=== PATIENT | male | born 1935 | race Caucasian/White ===

== ENCOUNTER 2021-05-27 06:38 | Day surgery (SDC) | payer MEDICARE, OTHER ==
[~2021-05-27] VITALS: Ht 172.7 cm; Wt 92.9 kg
[2021-05-27] VITALS (9 sets, daily range): BP systolic 99–125; BP diastolic 51–77
[2021-05-27] MEDS ORDERED: VANCOMYCIN 1,500MG inj. 1,500 MG in normal saline 500ml IV soln 500 ML IV ONE (07:00)
[2021-05-27] MEDS ORDERED: cefazolin/dext.iso 2gm/100ml 100 ML IV ONE (07:00)
[2021-05-27 07:47] LABS: BASOPHILS # (AUTO) 0.1 X10'3 (0-0.2); BASOPHILS % (AUTO) 0.7 % (0-1); EOSINOPHILS # (AUTO) 0.2 X10'3 (0-0.9); HEMATOCRIT 41.1 % (42.0-52.0); HEMOGLOBIN 14.1 g/dl (14.0-17.9); LYMPHOCYTES # (AUTO) 1.2 X10'3 (1.1-4.8); LYMPHOCYTES % (AUTO) 15.3 % (21-51); MEAN CORPUSCULAR HEMOGLOBIN 33.1 PG (27.0-31.0); MEAN CORPUSCULAR HGB CONC 34.2 g/dL (33.0-36.5); MEAN CORPUSCULAR VOLUME 96.8 FL (78-98); MEAN PLATELET VOLUME 8.2 FL (7.4-10.4); MONOCYTES % (AUTO) 12.6 % (2-12); NEUTROPHILS # (AUTO) 5.6 X10'3 (1.8-7.7); NEUTROPHILS % (AUTO) 69.4 % (42-75); PLATELET COUNT 266 X10'3 (140-440); RED BLOOD COUNT 4.25 X10'6 (4.70-6.10)
[2021-05-27] MEDS ORDERED: CYAN1TAB41 PO (07:54)
[2021-05-27] MEDS ORDERED: UBID100C16 PO (07:54)
[2021-05-27] MEDS ORDERED: CARV12.549 PO (07:54)
[2021-05-27] MEDS ORDERED: CLOP75TA34 PO (07:54)
[2021-05-27] MEDS ORDERED: LOSA25TA96 PO (07:54)
[2021-05-27] MEDS ORDERED: APIX5TAB5 PO (07:54)
[2021-05-27] MEDS ORDERED: ISOS30TA84 PO (07:54)
[2021-05-27] MEDS ORDERED: MV-M1TAB19 PO (07:54)
[2021-05-27] MEDS ORDERED: SPIR25TA5 PO (07:54)
[2021-05-27] MEDS ORDERED: FLO0.4C PO (07:54)
[2021-05-27] MEDS ORDERED: TORS100T15 PO (07:54)
[2021-05-27 07:56] LABS: ALBUMIN 3.2 G/DL (3.4-5.0); ANION GAP 9 (8-16); BLOOD UREA NITROGEN 11 MG/DL (7-18); BUN/CREATININE RATIO 9.7 (5.4-32.0); CALCIUM 8.6 MG/DL (8.5-10.1); CHLORIDE 97 MMOL/L (99-107); CREATININE 1.13 MG/DL (0.60-1.10); GLUCOSE 114 MG/DL (70-104); MAGNESIUM 1.4 MG/DL (1.5-2.4); SODIUM 137 MMOL/L (135-145); TOTAL CARBON DIOXIDE 30.8 MMOL/L (24-32); eGFR 62 ML/MIN
[2021-05-27 08:00] LABS: POTASSIUM 2.7 MMOL/L (3.5-5.1)
[2021-05-27] MEDS ORDERED: potassium Cl 40MEQ/1/2NS 520ml 520 ML IV PRN (08:20)
[2021-05-27] MEDS ORDERED: vancomycin 1,000mg inj ONE (08:35)
[2021-05-27] MEDS ORDERED: LIDOcaine 1% W/epiNEPHrine 1:100,000 20ml vial ONE (08:35)
[2021-05-27] MEDS ORDERED: fentaNYL/PF 50MCG/1 ML 2ML syringe ONE (08:35)
[2021-05-27] MEDS ORDERED: midazolam 1 mg/ML 2ml injection ONE ×7 (08:35→10:22)
[2021-05-27] MEDS ORDERED: iohexol 350 MG/ML 50ML vial IV ONE ×2 (08:43→10:09)
[2021-05-27] MEDS ORDERED: potassium Cl 10 mEq/100mL bag IV ONE ×2 (08:45)
[2021-05-27] MEDS ORDERED: POTASSIUM CL IV ONE ×4 (08:50)
[2021-05-27] MEDS ORDERED: potassium CL 10mEq/100ml bag 100 ML IV ONE ×2 (08:50)
[2021-05-27] MEDS ORDERED: NORMAL SALINE IV ONE ×4 (08:50)
[2021-05-27] MEDS ORDERED: LIDOCAINE 1%/EPI 1:100,000 inj. 10 ML multi-dose vial ONE (09:44)
[2021-05-27] MEDS ORDERED: proCHLORperazine 10 MG/2 ml inj ONE (10:18)
[2021-05-27] MEDS ORDERED: HYDROcodone/acetaminophen 10/325mg tab PO PRN (11:25)
[2021-05-27] MEDS ORDERED: HYDROcodone/acetaminophen 5mg/325mg tablet PO PRN (11:25)
[2021-05-27] MEDS ORDERED: normal saline 1000ml 600 ML IV ONE (11:25)
== END 2021-05-27 14:10 | disposition home or self-care (01) ==
LOC: SSTAY O 06:38
PROVIDERS: ATTEND Internal Medicine Cardiovascular Disease
DX: Z45.02 Encounter for adjustment and management of automatic implantable cardiac defibrillator (principal); I42.0 Dilated cardiomyopathy; I48.20 Chronic atrial fibrillation, unspecified; I44.7 Left bundle-branch block, unspecified; I25.10 Atherosclerotic heart disease of native coronary artery without angina pectoris; I27.20 Pulmonary hypertension, unspecified; I48.0 Paroxysmal atrial fibrillation; I50.9 Heart failure, unspecified; I25.5 Ischemic cardiomyopathy; G47.30 Sleep apnea, unspecified; Z79.899 Other long term (current) drug therapy; Z79.01 Long term (current) use of anticoagulants; Z95.1 Presence of aortocoronary bypass graft
CPT/HCPCS: 33225; 33264; 36415; 71045; 80048; 83735; 85025; 85610; 93005; 99152; 99153; C1769; C1882; C1887; C1894; C1900; J0780; J2250; J3010; J3370; J3480; Q9967; A4565; A4620; A6258

== ENCOUNTER 2022-02-17 07:37 | Emergency (ER) | payer MEDICARE, OTHER ==
[~2022-02-17] VITALS: Ht 175.3 cm; Wt 86.2 kg
[~2022-02-17 07:37] MED LIST: APIX5TAB5 PO; CARV12.549 PO; CLOP75TA34 PO; CYAN1TAB41 PO; FLO0.4C PO; ISOS30TA84 PO; LOSA25TA96 PO; MV-M1TAB19 PO; SPIR25TA5 PO; TORS100T15 PO; UBID100C16 PO
[2022-02-17 07:55] VITALS: BP 109/66
--- NOTE | 2022-02-17 08:26 | NUR ---
TRAUMA ALERT CALLED OFF BY MD GANDHI
--- NOTE | 2022-02-17 09:35 | NUR ---
PT REQUESTING PAIN MEDICATION, NOTIFIED
[2022-02-17] MEDS ORDERED: HYDR-3965 PO (09:45)
== END 2022-02-17 10:19 | disposition home or self-care (01) ==
LOC: ER 07:37
DX: S92.352A Displaced fracture of fifth metatarsal bone, left foot, initial encounter for closed fracture (principal); S80.12XA Contusion of left lower leg, initial encounter; Z79.899 Other long term (current) drug therapy; Z79.01 Long term (current) use of anticoagulants; W19.XXXA Unspecified fall, initial encounter; Y93.89 Activity, other specified; Y92.89 Other specified places as the place of occurrence of the external cause; Y99.8 Other external cause status
CPT/HCPCS: 73564; 73630; 99284

== ENCOUNTER 2022-07-18 08:03 | Day surgery (SDC) | payer MEDICARE, OTHER ==
[~2022-07-18] VITALS: Ht 172.7 cm; Wt 86.8 kg
[~2022-07-18 08:03] MED LIST changes: -CARV12.549 PO; +CARV6.2553 PO; -CYAN1TAB41 PO; +DOXY-243 PO; -FLO0.4C PO; -ISOS30TA84 PO; +LAN0.125T PO; -MV-M1TAB19 PO; +POTA-208 PO; -SPIR25TA5 PO; -UBID100C16 PO
[2022-07-18] MEDS ORDERED: FENTANYL CITRATE/PF 50 MCG/1 ML VIAL ONE (08:05)
[2022-07-18] MEDS ORDERED: MIDAZolam 1 MG/ML 5ML VIAL ONE (08:06)
[2022-07-18] MEDS ORDERED: LIDOcaine Viscous 15ml cup ONE (08:06)
[2022-07-18 08:16] VITALS: BP 134/73
[2022-07-18] MEDS ORDERED: TERB250T89 PO (08:51)
[2022-07-18] MEDS ORDERED: KETO120S5 TOP (08:51)
[2022-07-18] MEDS ORDERED: diphenhydrAMINE 50 mg/ml inj ONE (08:54)
[2022-07-18 09:16] VITALS: BP 147/73
[2022-07-18 09:24] VITALS: BP 132/78
[2022-07-18 09:34] VITALS: BP 141/87
[2022-07-18 09:44] VITALS: BP 142/82
== END 2022-07-18 10:00 | disposition home or self-care (01) ==
LOC: GI LAB 08:03
PROVIDERS: ATTEND Internal Medicine Gastroenterology
DX: K29.70 Gastritis, unspecified, without bleeding (principal); R13.10 Dysphagia, unspecified
CPT/HCPCS: 43239; J2250; J3010; J7030; Z7512; 99152; A4620; J1200

== ENCOUNTER 2022-07-22 11:26 | Emergency (ER) | payer MEDICARE, OTHER ==
[~2022-07-22] VITALS: Ht 172.7 cm; Wt 222.7 kg
[~2022-07-22 11:26] MED LIST changes: -DOXY-243 PO; +KETO120S5 TOP; -POTA-208 PO; +TERB250T89 PO
[2022-07-22 12:54] LABS: BASOPHILS # (AUTO) 0.1 X10'3 (0-0.2); BASOPHILS % (AUTO) 0.8 % (0-1); EOSINOPHILS # (AUTO) 0.2 X10'3 (0-0.9); EOSINOPHILS % (AUTO) 1.4 % (0-6); HEMATOCRIT 42.5 % (42.0-52.0); HEMOGLOBIN 13.9 g/dl (14.0-17.9); LYMPHOCYTES # (AUTO) 1.3 X10'3 (1.1-4.8); LYMPHOCYTES % (AUTO) 8.2 % (21-51); MEAN CORPUSCULAR HEMOGLOBIN 28.8 PG (27.0-31.0); MEAN CORPUSCULAR HGB CONC 32.8 g/dL (33.0-36.5); MEAN PLATELET VOLUME 7.5 FL (7.4-10.4); MONOCYTES # (AUTO) 1.7 X10'3 (0-0.9); MONOCYTES % (AUTO) 10.6 % (2-12); NEUTROPHILS # (AUTO) 12.3 X10'3 (1.8-7.7); PLATELET COUNT 457 X10'3 (140-440); RED BLOOD COUNT 4.83 X10'6 (4.70-6.10); RED CELL DISTRIBUTION WIDTH 14.5 % (11.5-14.5); WHITE BLOOD COUNT 15.6 X10'3 (4.5-11.0)
[2022-07-22 13:00] LABS: ALANINE AMINOTRANSFERASE 12 U/L (12-78); ALBUMIN 3.3 G/DL (3.4-5.0); ALBUMIN/GLOBULIN RATIO 0.7 (1.1-1.5); ALKALINE PHOSPHATASE 92 IU/L (46-116); ANION GAP 11 (8-16); ASPARTATE AMINO TRANSFERASE 17 U/L (10-37); BILIRUBIN,TOTAL 0.4 MG/DL (0.1-1.0); BLOOD UREA NITROGEN 34 MG/DL (7-18); BUN/CREATININE RATIO 24.6 (5.4-32.0); CALCIUM 9.5 MG/DL (8.5-10.1); CHLORIDE 98 MMOL/L (99-107); CREATININE 1.38 MG/DL (0.60-1.10); GLUCOSE 126 MG/DL (70-104); POTASSIUM 4.3 MMOL/L (3.5-5.1); SODIUM 135 MMOL/L (135-145); TOTAL CARBON DIOXIDE 26.2 MMOL/L (24-32); TOTAL PROTEIN 7.9 G/DL (6.4-8.2); eGFR 49 ML/MIN
[2022-07-22 14:17] LABS: CLARITY,URINE CLEAR (Clear); COLOR,URINE YELLOW (Yellow); GLUCOSE, URINE NEGATIVE (Neg); KETONES,URINE NEGATIVE (Neg); LEUKOCYTE ESTERASE ,URINE NEGATIVE (Neg); NITRITES, URINE NEGATIVE (Neg); OCCULT BLOOD,URINE NEGATIVE (Neg); PROTEIN,URINE NEGATIVE (Neg); UROBILINOGEN,URINE 0.2 E.U/dL (0.2-1.0)
[2022-07-22 14:18] LABS: UA COLLECTION TYPE VOIDED
[2022-07-22] MEDS ORDERED: morphine 2 MG/ML inj. syringe IV ONE (14:45)
[2022-07-22] MEDS ORDERED: ondansetron/PF 4mg/2ml inj IV ONE (14:45)
--- NOTE | 2022-07-22 14:52 | NUR ---
pt left for CT abd
--- NOTE | 2022-07-22 15:17 | NUR ---
Pt came back from CT
[2022-07-22] MEDS ORDERED: FENT-90 TOP (17:42)
[2022-07-22 18:36] VITALS: BP 140/71
== END 2022-07-22 18:42 | disposition home or self-care (01) ==
LOC: ER 11:27
DX: M54.50 Low back pain, unspecified (principal); Z88.8 Allergy status to other drugs, medicaments and biological substances; Z88.5 Allergy status to narcotic agent
CPT/HCPCS: 36415; 71045; 74176; 80053; 81003; 83880; 84484; 85025; 93005; 96374; 96375; 99285; J2270; J2405; 88305

== ENCOUNTER 2023-12-08 10:34 | Emergency (ER) | payer MEDICARE, OTHER ==
[~2023-12-08] VITALS: Ht 172.7 cm; Wt 74.5 kg
[~2023-12-08 10:34] MED LIST changes: +CARV12.549 PO; -CARV6.2553 PO; +CHLO25TA11 PO; +CYCL-394 PO; -LOSA25TA96 PO; +PRED10TA PO; +SACU1TAB7 PO
[2023-12-08 10:47] VITALS: TEMP 97.8
[2023-12-08 11:14] VITALS: PULSE 60; RESP 18; O2SAT 97
[2023-12-08] MEDS: ipratropium/albuterol 3ml nebule NEB ONE (11:14)
[2023-12-08 11:24] VITALS: PULSE 60; RESP 16; O2SAT 97
[2023-12-08] MEDS ORDERED: ALBU8HFA INH (12:02)
[2023-12-08] MEDS ORDERED: AZIT250T83 PO (12:02)
[2023-12-08 12:16] VITALS: BP 136/62; PULSE 62; RESP 14; O2SAT 98
== END 2023-12-08 12:19 | disposition home or self-care (01) ==
LOC: ER 10:35
DX: J06.9 Acute upper respiratory infection, unspecified (principal); I11.0 Hypertensive heart disease with heart failure; I50.9 Heart failure, unspecified; J44.9 Chronic obstructive pulmonary disease, unspecified; Z88.8 Allergy status to other drugs, medicaments and biological substances; Z79.899 Other long term (current) drug therapy
CPT/HCPCS: 71045; 94640; 94760; 99283

== ENCOUNTER 2024-04-24 09:15 | Inpatient (IN) | payer MEDICARE, OTHER ==
[~2024-04-24] VITALS: Ht 172.7 cm; Wt 84.1 kg
[~2024-04-24 09:15] MED LIST changes: +FURO40TA4 PO; -PRED10TA PO; -TORS100T15 PO
[2024-04-24 09:34] LABS: BASOPHILS # (AUTO) 0.1 X10'3 (0-0.2); BASOPHILS % (AUTO) 0.9 % (0-1); EOSINOPHILS # (AUTO) 0.4 X10'3 (0-0.9); EOSINOPHILS % (AUTO) 4.5 % (0-6); LYMPHOCYTES # (AUTO) 1.4 X10'3 (1.1-4.8); LYMPHOCYTES % (AUTO) 15.9 % (21-51); MEAN CORPUSCULAR HEMOGLOBIN 28.4 PG (27.0-31.0); MEAN CORPUSCULAR HGB CONC 33.4 g/dL (33.0-36.5); MEAN CORPUSCULAR VOLUME 85.1 FL (78-98); MEAN PLATELET VOLUME 8.1 FL (7.4-10.4); MONOCYTES # (AUTO) 1.1 X10'3 (0-0.9); MONOCYTES % (AUTO) 12.3 % (2-12); NEUTROPHILS # (AUTO) 5.8 X10'3 (1.8-7.7); NEUTROPHILS % (AUTO) 66.4 % (42-75); PLATELET COUNT 254 X10'3 (140-440); RED BLOOD COUNT 4.59 X10'6 (4.70-6.10); RED CELL DISTRIBUTION WIDTH 15.2 % (11.5-14.5); WHITE BLOOD COUNT 8.8 X10'3 (4.5-11.0)
[2024-04-24 09:49] LABS: ALANINE AMINOTRANSFERASE 10 U/L (12-78); ALBUMIN 3.8 G/DL (3.4-5.0); ALBUMIN/GLOBULIN RATIO 1.2 (1.1-1.5); ALKALINE PHOSPHATASE 58 IU/L (46-116); ANION GAP 7 (8-16); ASPARTATE AMINO TRANSFERASE 25 U/L (10-37); BILIRUBIN,TOTAL 0.9 MG/DL (0.1-1.0); BLOOD UREA NITROGEN 20 MG/DL (7-18); BUN/CREATININE RATIO 15.2 (10.0-20.0); CALCIUM 9.2 MG/DL (8.5-10.1); CHLORIDE 93 MMOL/L (99-107); CREATININE 1.32 MG/DL (0.60-1.10); GLUCOSE 106 MG/DL (70-104); POTASSIUM 3.8 MMOL/L (3.5-5.1); SODIUM 132 MMOL/L (135-145); TOTAL CARBON DIOXIDE 31.6 MMOL/L (24-32); eCRCL 38 ML/MIN; eGFR 51 ML/MIN
--- NOTE | 2024-04-24 09:55 | NUR ---
RESIDENT AT BEDSIDE
[2024-04-24 09:56] LABS: PRO BRAIN NATRIURETIC PEPTIDE 11031 PG/ML (0-450)
--- NOTE | 2024-04-24 10:28 | NUR ---
REVIEWED AND AGREE WITH ASSESSMENT FINDINGS OF ERICK GILMAN.
[2024-04-24 11:38] LABS: D-DIMER 0.82 MG/L FEU (0-0.50)
[2024-04-24] MEDS: furosemide 10 MG/1 ML 10ml inj IV ONE (12:49)
--- NOTE | 2024-04-24 12:50 | NUR ---
MD QUARLES AT BEDSIDE. RN ASKED MD QUARLES IF HE WANTED TO REPLACE K 3.8 SINCE PT WILL 60MG MORE OF LASIX TO PREVENT LOW K. MD QUARLES GAVE VERBAL ORDER TO GIVE 20MEQ K . VASCULAR US AT BEDSIDE
[2024-04-24 12:57] LABS: DIGOXIN 1.4 NG/ML (0.9-1.9)
[2024-04-24] MEDS ORDERED: HYDROcodone/acetaminophen 5mg/325mg tablet PO PRN (13:20)
[2024-04-24] MEDS ORDERED: acetaminophen 325mg tablet PO PRN (13:20)
[2024-04-24] MEDS ORDERED: bisacodyl 10mg suppository rectal RC PRN (13:20)
[2024-04-24] MEDS ORDERED: magnesium sulf-water 2g/50mL 50 ML IV PRN (13:20)
[2024-04-24] MEDS ORDERED: potassium Cl 20 mEq SR tablet PO PRN ×2 (13:20)
[2024-04-24] MEDS ORDERED: potassium Cl 40MEQ/1/2NS 520ml 520 ML IV PRN (13:20)
[2024-04-24] MEDS ORDERED: magnesium sulf-water 4G/100mL 100 ML IV PRN (13:20)
[2024-04-24] MEDS ORDERED: mag hydrox/Alum hydrox/simeth 30ml oral suspension PO PRN (13:20)
[2024-04-24] MEDS: PERFLUTREN PROTEIN-A MICROSPHR (Optison) 0.22 MG/ML 3ML VIAL IV ONE (13:20)
--- NOTE | 2024-04-24 15:46 | NUR ---
Patient states his will bring in medication list this afternoon or tomorrow.
[2024-04-24 17:28] VITALS: BP 137/66; PULSE 61; RESP 24; TEMP 97.9; O2SAT 100
[2024-04-24 18:00] VITALS: BP 149/75; PULSE 65; PULSE 68; RESP 18; RESP 19; TEMP 96.8; O2SAT 100
[2024-04-24 20:00] VITALS: RESP 20; O2SAT 98
[2024-04-24] MEDS: K and/or MAG REPLACEMENT MC SCH (20:00)
[2024-04-24] MEDS: docusate sod 100mg capsule PO SCH (20:00)
[2024-04-24] MEDS: furosemide 40mg/4ml inj IV SCH (20:13)
[2024-04-24] MEDS: heparin, porcine 5000 units/ml vial SQ SCH (20:14)
[2024-04-24 22:00] VITALS: BP 139/70; PULSE 61; RESP 20; TEMP 98; O2SAT 99
[2024-04-25] VITALS (7 sets, daily range): BP systolic 111–150; BP diastolic 54–82; PULSE 51–108; RESP 14–21; TEMP 97.2–98.2; O2SAT 92–100
[2024-04-25] MEDS: Melatonin 3mg tablet PO ONE (01:29)
[2024-04-25] MEDS: HYDROcodone/acetaminophen 10/325mg tab PO PRN (05:25)
--- NOTE | 2024-04-25 05:27 | NUR ---
CHEST PAIN: 1) C/O of chest pain, not radiating, no nausea or vomiting. 2) EKG completed, awaiting MD REVIEW. 3) [place] administered and awaiting effect 4) Paged RT - patient wheezing
--- NOTE | 2024-04-25 05:34 | NUR ---
Paged RT: MESSAGE ACCEPTED! The message has been submitted for processing. Back to message FORM
--- NOTE | 2024-04-25 05:46 | NUR ---
RT reviewed patient and the wheeziness is non respiratory related more fluid overload related.
--- NOTE | 2024-04-25 05:47 | NUR ---
1) Informed MD, on the way to review patient. 2) Currently on 4 liters oxygen - sats in the high 90s to 100%, 3) Patient using abdominal muscles to breath - moderate respiratory distress. 4) Will continue monitoring, treating, evaluating, and treating accordingly.
[2024-04-25 06:12] LABS: BASOPHILS # (AUTO) 0.1 X10'3 (0-0.2); EOSINOPHILS # (AUTO) 0.4 X10'3 (0-0.9); EOSINOPHILS % (AUTO) 3.4 % (0-6); HEMATOCRIT 40.7 % (42.0-52.0); HEMOGLOBIN 13.4 g/dl (14.0-17.9); LYMPHOCYTES # (AUTO) 1.3 X10'3 (1.1-4.8); LYMPHOCYTES % (AUTO) 12.5 % (21-51); MEAN CORPUSCULAR HEMOGLOBIN 28.5 PG (27.0-31.0); MEAN CORPUSCULAR VOLUME 86.3 FL (78-98); MEAN PLATELET VOLUME 8.9 FL (7.4-10.4); MONOCYTES # (AUTO) 1.2 X10'3 (0-0.9); MONOCYTES % (AUTO) 11.2 % (2-12); NEUTROPHILS # (AUTO) 7.6 X10'3 (1.8-7.7); NEUTROPHILS % (AUTO) 71.9 % (42-75); PLATELET COUNT 284 X10'3 (140-440); RED BLOOD COUNT 4.71 X10'6 (4.70-6.10); RED CELL DISTRIBUTION WIDTH 14.9 % (11.5-14.5); WHITE BLOOD COUNT 10.6 X10'3 (4.5-11.0)
[2024-04-25] MEDS: nitroGLYCERIN 0.4mg SUBLingual tab SL PRN (06:13)
[2024-04-25] MEDS: bumetanide 0.25mg/ml 4ml vial IV ONE ×2 (06:20→09:28)
[2024-04-25 06:29] LABS: ALANINE AMINOTRANSFERASE 7 U/L (12-78); ALBUMIN 3.7 G/DL (3.4-5.0); ALBUMIN/GLOBULIN RATIO 1.2 (1.1-1.5); ALKALINE PHOSPHATASE 56 IU/L (46-116); ANION GAP 10 (8-16); ASPARTATE AMINO TRANSFERASE 12 U/L (10-37); BLOOD UREA NITROGEN 25 MG/DL (7-18); BUN/CREATININE RATIO 21.2 (10.0-20.0); CALCIUM 9.3 MG/DL (8.5-10.1); CHLORIDE 94 MMOL/L (99-107); CREATININE 1.18 MG/DL (0.60-1.10); GLUCOSE 104 MG/DL (70-104); POTASSIUM 3.8 MMOL/L (3.5-5.1); SODIUM 133 MMOL/L (135-145); TOTAL CARBON DIOXIDE 29.2 MMOL/L (24-32); TOTAL PROTEIN 6.8 G/DL (6.4-8.2); eCRCL 43 ML/MIN; eGFR 58 ML/MIN
--- NOTE | 2024-04-25 07:08 | NUR ---
Problems reprioritized. Patient report given, questions answered & plan of care reviewed with ERICK Alarcon
[2024-04-25] MEDS: metolazone 2.5mg tablet PO ONE (09:27)
[2024-04-25] MEDS: carvedilol 6.25mg tablet PO SCH (20:00)
[2024-04-25] MEDS: sacubitril/valsartan 49mg-51mg tablet PO SCH (20:00)
--- NOTE | 2024-04-25 20:31 | NUR ---
NIGHT MEDICATION: 1) Omitted bp med because bp and patient due Furosemide as well. 2) Will review patient's bp later and re-administer anti hypertensive if need be.
[2024-04-25] MEDS: apixaban 5mg tablet PO SCH (20:36)
[2024-04-25] MEDS: ondansetron/PF 4mg/2ml inj IV PRN (20:41)
[2024-04-25] MEDS: temazepam 15mg capsule PO ONE (23:18)
--- NOTE | 2024-04-25 23:19 | NUR ---
BP meds administered because bp is 127/54.
--- NOTE | 2024-04-25 23:27 | NUR ---
Carvedilol administered as prescribed, Entresto unavailable, sent a message to pharmacist.
[2024-04-26 02:00] VITALS: BP 110/58; PULSE 60; RESP 17; TEMP 97.3; O2SAT 99
[2024-04-26 06:00] VITALS: BP 133/59; PULSE 62; RESP 16; TEMP 97.3; O2SAT 100
[2024-04-26 06:09] LABS: BASOPHILS # (AUTO) 0.1 X10'3 (0-0.2); BASOPHILS % (AUTO) 1.3 % (0-1); EOSINOPHILS # (AUTO) 0.3 X10'3 (0-0.9); EOSINOPHILS % (AUTO) 3.5 % (0-6); HEMATOCRIT 37.2 % (42.0-52.0); HEMOGLOBIN 12.2 g/dl (14.0-17.9); LYMPHOCYTES # (AUTO) 1.1 X10'3 (1.1-4.8); LYMPHOCYTES % (AUTO) 13.2 % (21-51); MEAN CORPUSCULAR HEMOGLOBIN 28.5 PG (27.0-31.0); MEAN CORPUSCULAR HGB CONC 32.8 g/dL (33.0-36.5); MEAN PLATELET VOLUME 8.6 FL (7.4-10.4); MONOCYTES # (AUTO) 1.3 X10'3 (0-0.9); MONOCYTES % (AUTO) 15.9 % (2-12); NEUTROPHILS # (AUTO) 5.6 X10'3 (1.8-7.7); NEUTROPHILS % (AUTO) 66.1 % (42-75); PLATELET COUNT 228 X10'3 (140-440); RED BLOOD COUNT 4.28 X10'6 (4.70-6.10); RED CELL DISTRIBUTION WIDTH 14.9 % (11.5-14.5); WHITE BLOOD COUNT 8.4 X10'3 (4.5-11.0)
[2024-04-26 06:25] LABS: ANION GAP 6 (8-16); BLOOD UREA NITROGEN 28 MG/DL (7-18); BUN/CREATININE RATIO 20.3 (10.0-20.0); CALCIUM 9.2 MG/DL (8.5-10.1); CHLORIDE 94 MMOL/L (99-107); CREATININE 1.38 MG/DL (0.60-1.10); GLUCOSE 89 MG/DL (70-104); MAGNESIUM 1.8 MG/DL (1.5-2.4); POTASSIUM 3.7 MMOL/L (3.5-5.1); SODIUM 136 MMOL/L (135-145); TOTAL CARBON DIOXIDE 35.8 MMOL/L (24-32); eCRCL 36 ML/MIN; eGFR 49 ML/MIN
--- NOTE | 2024-04-26 06:35 | NUR ---
Problems reprioritized. Patient report given, questions answered & plan of care reviewed with Katty.
[2024-04-26 07:04] LABS: ALANINE AMINOTRANSFERASE 10 U/L (12-78); ALBUMIN 3.3 G/DL (3.4-5.0); ALBUMIN/GLOBULIN RATIO 1.1 (1.1-1.5); ALKALINE PHOSPHATASE 47 IU/L (46-116); ASPARTATE AMINO TRANSFERASE 16 U/L (10-37); BILIRUBIN,TOTAL 0.9 MG/DL (0.1-1.0); TOTAL PROTEIN 6.4 G/DL (6.4-8.2)
[2024-04-26] MEDS: digoxin 125mcg (0.125mg) tablet PO SCH (09:13)
[2024-04-26] MEDS: acetaminophen 325mg tablet PO PRN (16:19)
[2024-04-26 18:00] VITALS: BP 107/47; PULSE 60; RESP 17; TEMP 97.8; O2SAT 97
[2024-04-26 19:20] VITALS: BP 91/41
[2024-04-26 22:00] VITALS: BP 109/61; PULSE 63; RESP 21; TEMP 97; O2SAT 99
[2024-04-27] VITALS (7 sets, daily range): BP systolic 112–134; BP diastolic 47–55; PULSE 60–84; RESP 12–23; TEMP 97.2–99.2; O2SAT 92–99
[2024-04-27 07:09] LABS: BASOPHILS # (AUTO) 0.1 X10'3 (0-0.2); BASOPHILS % (AUTO) 0.8 % (0-1); EOSINOPHILS # (AUTO) 0.1 X10'3 (0-0.9); EOSINOPHILS % (AUTO) 0.9 % (0-6); HEMATOCRIT 36.1 % (42.0-52.0); HEMOGLOBIN 11.8 g/dl (14.0-17.9); LYMPHOCYTES # (AUTO) 1.2 X10'3 (1.1-4.8); LYMPHOCYTES % (AUTO) 8.8 % (21-51); MEAN CORPUSCULAR HEMOGLOBIN 28.3 PG (27.0-31.0); MEAN CORPUSCULAR HGB CONC 32.7 g/dL (33.0-36.5); MEAN CORPUSCULAR VOLUME 86.7 FL (78-98); MEAN PLATELET VOLUME 9.2 FL (7.4-10.4); MONOCYTES # (AUTO) 2.5 X10'3 (0-0.9); MONOCYTES % (AUTO) 18.3 % (2-12); NEUTROPHILS # (AUTO) 9.9 X10'3 (1.8-7.7); NEUTROPHILS % (AUTO) 71.2 % (42-75); PLATELET COUNT 228 X10'3 (140-440); RED BLOOD COUNT 4.17 X10'6 (4.70-6.10); WHITE BLOOD COUNT 13.9 X10'3 (4.5-11.0)
[2024-04-27 07:26] LABS: ALANINE AMINOTRANSFERASE 9 U/L (12-78); ALBUMIN/GLOBULIN RATIO 1.1 (1.1-1.5); ALKALINE PHOSPHATASE 40 IU/L (46-116); ANION GAP 4 (8-16); ASPARTATE AMINO TRANSFERASE 13 U/L (10-37); BLOOD UREA NITROGEN 38 MG/DL (7-18); BUN/CREATININE RATIO 24.4 (10.0-20.0); CALCIUM 8.9 MG/DL (8.5-10.1); CHLORIDE 94 MMOL/L (99-107); CREATININE 1.56 MG/DL (0.60-1.10); GLUCOSE 92 MG/DL (70-104); MAGNESIUM 1.7 MG/DL (1.5-2.4); POTASSIUM 3.7 MMOL/L (3.5-5.1); SODIUM 135 MMOL/L (135-145); TOTAL PROTEIN 5.8 G/DL (6.4-8.2); eCRCL 32 ML/MIN; eGFR 42 ML/MIN
[2024-04-27 07:55] LABS: TOTAL CELLS COUNTED 100
[2024-04-27 07:56] LABS: PLATELET ESTIMATE NORMAL
--- NOTE | 2024-04-27 08:29 | NUR ---
Patient in room U 3018. I have received report from Rolan and had the opportunity to ask questions and assume patient care. Addendum: 04/27/24 at 0831 by ERICK Mao RN Amended: Links added.
[2024-04-27 10:18] LABS: BASOPHILS # (AUTO) 0.1 X10'3 (0-0.2); BASOPHILS % (AUTO) 0.4 % (0-1); EOSINOPHILS # (AUTO) 0.1 X10'3 (0-0.9); EOSINOPHILS % (AUTO) 0.8 % (0-6); HEMATOCRIT 35.6 % (42.0-52.0); HEMOGLOBIN 11.7 g/dl (14.0-17.9); LYMPHOCYTES # (AUTO) 0.9 X10'3 (1.1-4.8); MEAN CORPUSCULAR HEMOGLOBIN 28.3 PG (27.0-31.0); MEAN CORPUSCULAR HGB CONC 32.8 g/dL (33.0-36.5); MEAN CORPUSCULAR VOLUME 86.3 FL (78-98); MONOCYTES # (AUTO) 2.4 X10'3 (0-0.9); MONOCYTES % (AUTO) 16.3 % (2-12); NEUTROPHILS # (AUTO) 11.3 X10'3 (1.8-7.7); NEUTROPHILS % (AUTO) 76.5 % (42-75); PLATELET COUNT 233 X10'3 (140-440); RED BLOOD COUNT 4.12 X10'6 (4.70-6.10); RED CELL DISTRIBUTION WIDTH 14.8 % (11.5-14.5); WHITE BLOOD COUNT 14.8 X10'3 (4.5-11.0)
--- NOTE | 2024-04-27 12:41 | NUR ---
O2 Sat at rest on room air:_95__% If below 89%: Recovery O2 Sat at rest on ___LPM:___%:___% via (mask/nasal cannula, etc..) No further documentation is necessary. If O2 Sat did not drop below 89% on room air,ambulate patient on room air. O2 Sat while ambulating on room air:_85__% Recovery O2 Sat while ambulating on _3__LPM:___% No further documentation is necessary. If patient does not drop below 89% while ambulating, he/she does not qualify for home O2.
--- NOTE | 2024-04-27 18:40 | NUR ---
Patient in room PCU 3018. I have received report from ERICK Pastrana and had the opportunity to ask questions and assume patient care.
[2024-04-27] MEDS: normal saline 1000ml 1,000 ML IV SCH (19:27)
[2024-04-28 02:00] VITALS: BP 114/44; PULSE 60; RESP 13; TEMP 96.5; O2SAT 95
[2024-04-28 06:00] VITALS: BP 114/60; PULSE 61; RESP 17; TEMP 97.6; O2SAT 100
[2024-04-28 06:26] LABS: ALANINE AMINOTRANSFERASE 8 U/L (12-78); ALBUMIN 2.7 G/DL (3.4-5.0); ALBUMIN/GLOBULIN RATIO 0.9 (1.1-1.5); ALKALINE PHOSPHATASE 41 IU/L (46-116); ANION GAP 5 (8-16); ASPARTATE AMINO TRANSFERASE 12 U/L (10-37); BILIRUBIN,TOTAL 0.9 MG/DL (0.1-1.0); BLOOD UREA NITROGEN 42 MG/DL (7-18); BUN/CREATININE RATIO 29.6 (10.0-20.0); CALCIUM 8.9 MG/DL (8.5-10.1); CHLORIDE 94 MMOL/L (99-107); CREATININE 1.42 MG/DL (0.60-1.10); GLUCOSE 99 MG/DL (70-104); MAGNESIUM 1.8 MG/DL (1.5-2.4); POTASSIUM 3.7 MMOL/L (3.5-5.1); SODIUM 136 MMOL/L (135-145); TOTAL CARBON DIOXIDE 37.2 MMOL/L (24-32); TOTAL PROTEIN 5.8 G/DL (6.4-8.2); eCRCL 35 ML/MIN; eGFR 47 ML/MIN
--- NOTE | 2024-04-28 06:34 | NUR ---
Problems reprioritized. Patient report given, questions answered & plan of care reviewed with ERICK Alaniz.
[2024-04-28 06:39] LABS: BASOPHILS # (AUTO) 0.1 X10'3 (0-0.2); BASOPHILS % (AUTO) 0.7 % (0-1); EOSINOPHILS # (AUTO) 0.2 X10'3 (0-0.9); EOSINOPHILS % (AUTO) 1.8 % (0-6); HEMATOCRIT 34.9 % (42.0-52.0); HEMOGLOBIN 11.2 g/dl (14.0-17.9); LYMPHOCYTES # (AUTO) 1.1 X10'3 (1.1-4.8); LYMPHOCYTES % (AUTO) 8.7 % (21-51); MEAN CORPUSCULAR HEMOGLOBIN 27.7 PG (27.0-31.0); MEAN CORPUSCULAR HGB CONC 32.2 g/dL (33.0-36.5); MONOCYTES % (AUTO) 15.1 % (2-12); NEUTROPHILS # (AUTO) 9.5 X10'3 (1.8-7.7); NEUTROPHILS % (AUTO) 73.7 % (42-75); PLATELET COUNT 232 X10'3 (140-440); RED BLOOD COUNT 4.06 X10'6 (4.70-6.10); RED CELL DISTRIBUTION WIDTH 14.7 % (11.5-14.5)
[2024-04-28] MEDS ORDERED: furosemide 40mg/4ml inj IV SCH (08:00)
[2024-04-28] MEDS: CefTRIAXone 2gm/D5W 50ml BAG 50 ML IV SCH (09:26)
[2024-04-28 11:00] VITALS: BP 130/53; PULSE 62; RESP 17; TEMP 98; O2SAT 100
--- NOTE | 2024-04-28 12:31 | NUR ---
PAGE TO [place] [id number] MICAH. PLEASE RE-EVAL PATIENT FOR DC TODAY PER DR LATHAM. THANK YOU. SWEETIE @[phone]
[2024-04-28] MEDS: acetaminophen 325mg tablet PO SCH (13:43)
[2024-04-28 15:00] VITALS: BP 111/57; PULSE 60; RESP 19; TEMP 97.4; O2SAT 98
--- NOTE | 2024-04-28 18:35 | NUR ---
Patient in room PCU 3018. I have received report from Katty SUAREZ, and had the opportunity to ask questions and assume patient care.
[2024-04-28 21:00] VITALS: BP 122/45; PULSE 60; RESP 17; TEMP 97.6; O2SAT 97
[2024-04-29 02:49] VITALS: BP 121/59; PULSE 60; RESP 18; TEMP 98.5; O2SAT 100
--- NOTE | 2024-04-29 02:53 | NUR ---
Pt stated he feels like he has to pee, nurse had [employer] bladder scan the pt and the result was 464ml, nurse assessed pt bladder which felt a bit distended. Nurse spoke with Dr. Irizarry regarding situation and the Md gave orders to straight cath pt and then continue to monitor pt urinary status.
--- NOTE | 2024-04-29 03:15 | NUR ---
Nurse straight catheterized pt per MD orders and got 460ml out.
--- NOTE | 2024-04-29 06:34 | NUR ---
Problems reprioritized. Patient report given, questions answered & plan of care reviewed with Katty SUAREZ. Pt stable at shift change.
[2024-04-29 07:07] LABS: BASOPHILS # (AUTO) 0.1 X10'3 (0-0.2); EOSINOPHILS # (AUTO) 0.4 X10'3 (0-0.9); EOSINOPHILS % (AUTO) 4.5 % (0-6); HEMATOCRIT 34.7 % (42.0-52.0); HEMOGLOBIN 11.4 g/dl (14.0-17.9); LYMPHOCYTES # (AUTO) 1.2 X10'3 (1.1-4.8); LYMPHOCYTES % (AUTO) 12.1 % (21-51); MEAN CORPUSCULAR HEMOGLOBIN 28.1 PG (27.0-31.0); MEAN CORPUSCULAR HGB CONC 32.8 g/dL (33.0-36.5); MEAN CORPUSCULAR VOLUME 85.8 FL (78-98); MEAN PLATELET VOLUME 8.9 FL (7.4-10.4); MONOCYTES # (AUTO) 1.4 X10'3 (0-0.9); MONOCYTES % (AUTO) 14.2 % (2-12); NEUTROPHILS # (AUTO) 6.7 X10'3 (1.8-7.7); NEUTROPHILS % (AUTO) 68.2 % (42-75); PLATELET COUNT 257 X10'3 (140-440); RED BLOOD COUNT 4.05 X10'6 (4.70-6.10); RED CELL DISTRIBUTION WIDTH 15.2 % (11.5-14.5); WHITE BLOOD COUNT 9.9 X10'3 (4.5-11.0)
[2024-04-29 07:18] LABS: ALBUMIN 2.7 G/DL (3.4-5.0); ALBUMIN/GLOBULIN RATIO 0.8 (1.1-1.5); ALKALINE PHOSPHATASE 41 IU/L (46-116); ANION GAP 2 (8-16); ASPARTATE AMINO TRANSFERASE 7 U/L (10-37); BILIRUBIN,TOTAL 0.7 MG/DL (0.1-1.0); BLOOD UREA NITROGEN 44 MG/DL (7-18); BUN/CREATININE RATIO 33.6 (10.0-20.0); CHLORIDE 95 MMOL/L (99-107); CREATININE 1.31 MG/DL (0.60-1.10); GLUCOSE 97 MG/DL (70-104); POTASSIUM 3.7 MMOL/L (3.5-5.1); SODIUM 133 MMOL/L (135-145); TOTAL CARBON DIOXIDE 35.9 MMOL/L (24-32); eCRCL 38 ML/MIN; eGFR 52 ML/MIN
[2024-04-29 07:20] LABS: ALANINE AMINOTRANSFERASE < 6 U/L (12-78)
[2024-04-29] MEDS: furosemide 40mg/4ml inj IV SCH (10:28)
--- NOTE | 2024-04-29 11:54 | NUR ---
Initial: Pt admit for CHF exacerbation and acute HFrEF per EMR. Pt continues on a heart healthy diet with average PO intake of ~42% x 11 meals which met ~53% of estimated kcal and ~50% of protein needs. Recommend Ensure Enlive BIDBD trial to better help meet estimated nutrient needs. LBM on 04/27 and receiving routine bowel care per EMR. Will continue to monitor and make recommendations as appropriate. Recommendations: 1.Continue heart healthy diet 2.Ensure Enlive BIDBD trial 3.Routine bowel care 4.Weekly scaled wts Addendum: 04/29/24 at [address] Amended: Links added.
[2024-04-29] MEDS: lactose-reduced food (Ensure Enlive) - 237ml bottle PO SCH (17:30)
[2024-04-29 18:00] VITALS: BP 121/50; PULSE 60; RESP 14; TEMP 97.2; O2SAT 100
--- NOTE | 2024-04-29 19:17 | NUR ---
Patient in room PCU 3018. I have received report from Katty SUAREZ, and had the opportunity to ask questions and assume patient care.
[2024-04-29 22:00] VITALS: BP 111/51; PULSE 61; RESP 17; TEMP 97.7; O2SAT 100
[2024-04-30 02:00] VITALS: BP 125/45; PULSE 60; RESP 20; TEMP 97.5; O2SAT 100
--- NOTE | 2024-04-30 06:57 | NUR ---
Problems reprioritized. Patient report given, questions answered & plan of care reviewed with Pat RN. Pt stable at shift change.
[2024-04-30 07:00] VITALS: BP 126/55; PULSE 60; RESP 16; TEMP 97.5; O2SAT 99
[2024-04-30 08:45] LABS: BASOPHILS # (AUTO) 0.1 X10'3 (0-0.2); BASOPHILS % (AUTO) 1.1 % (0-1); EOSINOPHILS # (AUTO) 0.5 X10'3 (0-0.9); EOSINOPHILS % (AUTO) 5.5 % (0-6); HEMATOCRIT 37.6 % (42.0-52.0); LYMPHOCYTES % (AUTO) 10.9 % (21-51); MEAN CORPUSCULAR HEMOGLOBIN 27.7 PG (27.0-31.0); MEAN CORPUSCULAR VOLUME 86.5 FL (78-98); MEAN PLATELET VOLUME 8.8 FL (7.4-10.4); MONOCYTES # (AUTO) 1.2 X10'3 (0-0.9); MONOCYTES % (AUTO) 13.5 % (2-12); PLATELET COUNT 290 X10'3 (140-440); RED BLOOD COUNT 4.35 X10'6 (4.70-6.10); RED CELL DISTRIBUTION WIDTH 15.1 % (11.5-14.5); WHITE BLOOD COUNT 8.7 X10'3 (4.5-11.0)
[2024-04-30 09:04] LABS: ALBUMIN 2.5 G/DL (3.4-5.0); ANION GAP 4 (8-16); BLOOD UREA NITROGEN 45 MG/DL (7-18); BUN/CREATININE RATIO 45.9 (10.0-20.0); CALCIUM 9.3 MG/DL (8.5-10.1); CHLORIDE 97 MMOL/L (99-107); CREATININE 0.98 MG/DL (0.60-1.10); GLUCOSE 107 MG/DL (70-104); POTASSIUM 4.1 MMOL/L (3.5-5.1); SODIUM 135 MMOL/L (135-145); TOTAL CARBON DIOXIDE 34.4 MMOL/L (24-32); eCRCL 51 ML/MIN; eGFR 72 ML/MIN
[2024-04-30 11:00] VITALS: BP 132/71; PULSE 63; RESP 16; TEMP 98.7; O2SAT 99
[2024-04-30 15:00] VITALS: BP 125/50; PULSE 63; RESP 16; TEMP 98.7; O2SAT 99
[2024-04-30] MEDS ORDERED: CEFU500T66 PO (16:45)
[2024-04-30 17:52] LABS: BILIRUBIN,URINE NEGATIVE (Neg); CLARITY,URINE CLEAR (Clear); GLUCOSE, URINE NEGATIVE (Neg); KETONES,URINE NEGATIVE (Neg); LEUKOCYTE ESTERASE ,URINE NEGATIVE (Neg); NITRITES, URINE NEGATIVE (Neg); OCCULT BLOOD,URINE NEGATIVE (Neg); PH,URINE 6.5 (4.8-8.0); PROTEIN,URINE NEGATIVE (Neg); UROBILINOGEN,URINE 0.2 E.U/dL (0.2-1.0)
[2024-04-30 17:59] LABS: COLOR,URINE YELLOW (Yellow)
[2024-04-30 18:00] LABS: UA COLLECTION TYPE NON-SPECIFIED
[2024-04-30 18:30] VITALS: BP 136/51; PULSE 65; RESP 16; TEMP 96.3; O2SAT 96
--- NOTE | 2024-04-30 23:36 | NUR ---
Patient AOx3, VSS, at bedside. Pt belongings sent home cell phone, glasses, and clothing items. Per pt and , pt does not have a ring as seen in belongings list. Pt assured RN Aby & Deandre that the patient ring is at home in a safe. Pt discharged. denies pain. no s/s of distress.
== END 2024-04-30 20:30 | disposition home health service (06) | DRG 291 ==
LOC: ER 09:16 → ED HOLD 13:30 → PCU 3S 16:15
PROVIDERS: ADMIT Family Medicine; ATTEND Family Medicine
DX: I13.0 Hypertensive heart and chronic kidney disease with heart failure and stage 1 through stage 4 chronic kidney disease, or unspecified chronic kidney disease (principal); I50.21 Acute systolic (congestive) heart failure; I48.20 Chronic atrial fibrillation, unspecified; R65.10 Systemic inflammatory response syndrome (SIRS) of non-infectious origin without acute organ dysfunction; I25.10 Atherosclerotic heart disease of native coronary artery without angina pectoris; J44.9 Chronic obstructive pulmonary disease, unspecified; G89.29 Other chronic pain; M54.9 Dorsalgia, unspecified; G62.9 Polyneuropathy, unspecified; Z95.1 Presence of aortocoronary bypass graft; Z88.8 Allergy status to other drugs, medicaments and biological substances; Z79.01 Long term (current) use of anticoagulants; Z79.899 Other long term (current) drug therapy; Z86.16 Personal history of COVID-19; Z95.5 Presence of coronary angioplasty implant and graft; Z95.810 Presence of automatic (implantable) cardiac defibrillator; Z82.49 Family history of ischemic heart disease and other diseases of the circulatory system; Z88.5 Allergy status to narcotic agent; N18.9 Chronic kidney disease, unspecified
CPT/HCPCS: 36415; 71045; 73564; 80048; 80053; 80162; 81003; 83605; 83735; 83880; 84145; 84484; 85007; 85025; 85379; 85651; 87040; 87081; 93005; 93306; 93970; 97110; 97116; 97162; 97530; 99285; A6250; A6260; A6590; C1758; G0378; J0696; J1644; J1940; J2405; J3490; J7030; J7040